=== PATIENT | female | born 1965 | race Caucasian/White ===

== ENCOUNTER 2024-12-03 07:25 | Outpatient (CLI) | payer BC, SELFPAY ==
--- NOTE | 2024-12-03 08:58 | W.ANESCHARGE ---
Anesthesia Charges Start Date/Time Anesthesia Start Date: 12/03/24 Anesthesia Start Time: 08:30 Stop Date/Time Anesthesia Stop Date: 12/03/24 Anesthesia Stop Time: 08:52
== END 2024-12-03 07:26 | disposition home or self-care (01) ==
PROVIDERS: PCP Family Medicine; Visit Provider Internal Medicine
DX: Z12.11 Encounter for screening for malignant neoplasm of colon (principal); D12.5 Benign neoplasm of sigmoid colon
CPT/HCPCS: 00812; 45380; 88305; J2704

== ENCOUNTER 2025-01-27 10:32 | Outpatient (CLI) | payer BC, SELFPAY ==
[2025-01-27 11:18] LABS: PCR FLU A Negative PCR FLU A (Negative); PCR FLU B Negative PCR FLU B (Negative); SARS PCR* Negative SARS-CoV-2 (Negative)
== END 2025-01-27 10:33 | disposition home or self-care (01) ==
PROVIDERS: PCP Family Medicine; Visit Provider Physician Assistant Surgical
DX: J01.90 Acute sinusitis, unspecified (principal)
CPT/HCPCS: 87636